=== PATIENT | female | born 1950 | race Caucasian/White ===

== ENCOUNTER 2019-06-15 21:26 | Emergency (ER) | payer OTHER ==
[~2019-06-15] VITALS: Ht 157.5 cm; Wt 98.4 kg
[2019-06-15 22:23] VITALS: Ht 157.5 cm; Wt 98.4 kg
[2019-06-15 23:28] LABS: BASOPHIL % 0.2 % (0-2); PLATELET COUNT 282 x10^3mcL (130-400); RED CELL DISTRIBUTION WIDTH 14.5 % (11.5-14.5)
[2019-06-15 23:39] LABS: CALCIUM 9.2 mg/dL (8.5-10.1); CHLORIDE SERUM 103 mmol/L (98-107); CREATININE SERUM 0.8 mg/dL (0.6-1.0); GFR1 > 60 mL/min; GLUCOSE SERUM 163 mg/dL (74-106); POTASSIUM SERUM 4.2 mmol/L (3.5-5.1); SODIUM SERUM 141 mmol/L (136-145)
[2019-06-15 23:44] LABS: ALBUMIN 3.9 g/dL (3.4-5.0); ALKALINE PHOSPHATASE 98 U/L (46-116); ALT/SGPT 19 U/L (14-59); AST/SGOT 16 U/L (15-37); BILIRUBIN TOTAL 0.6 mg/dL (0.20-1.00); LIPASE 37 IU/L (73-393); TOTAL PROTEIN, SERUM 7.7 g/dL (6.4-8.2)
[2019-06-16 01:55] VITALS: BP 159/78
== END 2019-06-16 01:56 | disposition home or self-care (01) ==
LOC: ED 21:26
DX: K21.9 Gastro-esophageal reflux disease without esophagitis (principal)
CPT/HCPCS: C9113; J1200; J2405; J3490; J7030

== ENCOUNTER 2019-08-04 16:15 | Emergency (ER) | payer OTHER ==
[~2019-08-04] VITALS: Ht 157.5 cm; Wt 94.8 kg
[2019-08-04 16:28] VITALS: Ht 157.5 cm; Wt 94.8 kg
[2019-08-04 17:59] LABS: BASOPHIL % 0.3 % (0-2); PLATELET COUNT 334 x10^3mcL (130-400); RED CELL DISTRIBUTION WIDTH 14.2 % (11.5-14.5)
[2019-08-04 18:10] LABS: CALCIUM 9.1 mg/dL (8.5-10.1); CARBON DIOXIDE 25.8 mmol/L (21-32); CHLORIDE SERUM 107 mmol/L (98-107); CREATININE SERUM 0.8 mg/dL (0.6-1.0); GFR1 > 60 mL/min; GLUCOSE SERUM 132 mg/dL (74-106); POTASSIUM SERUM 3.7 mmol/L (3.5-5.1); SODIUM SERUM 145 mmol/L (136-145)
[2019-08-04 20:12] VITALS: BP 170/51
== END 2019-08-04 20:12 | disposition home or self-care (01) ==
LOC: ED 16:15
PROVIDERS: Emergency Medicine
DX: S02.2XXA Fracture of nasal bones, initial encounter for closed fracture (principal); S09.8XXA Other specified injuries of head, initial encounter; J45.909 Unspecified asthma, uncomplicated; Z88.0 Allergy status to penicillin; Z88.6 Allergy status to analgesic agent; W01.0XXA Fall on same level from slipping, tripping and stumbling without subsequent striking against object, initial encounter; Y93.89 Activity, other specified; Y92.89 Other specified places as the place of occurrence of the external cause; Y99.8 Other external cause status
CPT/HCPCS: 36415; J1200; J1885; J2765; Q0169

== ENCOUNTER 2019-08-09 09:06 | Inpatient (IN) | payer OTHER ==
[~2019-08-09] VITALS: Ht 157.5 cm; Wt 94.8 kg
[2019-08-09 09:41] VITALS: BP 150/68
[2019-08-09 15:44] VITALS: BP 143/67
--- NOTE | 2019-08-09 17:13 | NUR ---
AT 1530 - RECEIVED APTIENT FROM DAY SURGERY NURSE. SETTLED IN ROOM, ORIENTED TO SURROUNDINGS. PATIENT IS POST LAP JOSUE TODAY UNDER GENERAL ANAESTHESIA. PATIENT IS AWAKE, ALERT AND ORIENTED X 4. VS WNL. ON O2 VIA NC AT 2L/MIN. O2 SAT 99%. DRESSINGS TO SURGICAL INCISIONS ON ABDOMEN ARE DRY AND INTACT. KAROLINA DRAIN PATENT WITH SMALL AMOUNT OF SEROSANGUINOUS FLUID IN BULB. SON AT BEDSIDE. AT 1545 - IV INFUSION OF NS COMMENCED AT 80 ML/HR. PT C/O NAUSEA AT 1555 - MEDICATED WITH REGLAN PER EMAR. CALL PALCED FOR DR LA TO OBTAIN DIET ORDER. AT 1640 - DR LA PER PHONE. HE WILL ENTER FULL LIQUID DIET. AT 1700 - COMMENCED ON FLAGYL. FIRST DOSE IN PROGRESS.
[2019-08-09 17:25] VITALS: BP 136/61
--- NOTE | 2019-08-09 17:59 | NUR ---
COMMENCED ON FULL LIQUID DIET BUT PATIENT ANGELES HAS SOME NAUSEA.
--- NOTE | 2019-08-09 18:54 | NUR ---
NO FURTHER VOMITING OR C/O NAUSEA. VSS. IV INFUSING VANCOMYCIN AT THIS TIME. ABDOMINAL INCISION DRESSINGS REMAINS INTACT. KAROLINA DRAIN PATENT; - TOTAL OF 50 ML SEROSANGUINOUS DRAINAGE SINCE SURGERY. WILL ENDORSE CARE TO NIGHT NURSE.
--- NOTE | 2019-08-09 19:10 | NUR ---
REPORT RECEIVED FROM DAY SHIFT RN. PATIENT WAS SEEN RESTING COMFORTABLY IN BED. NO DISTRESS NOTED. BREATHING EVEN AND UNLABORED ON 2L NC. NO SOB OR RESP DISTRESS NOTED. DENIES CHEST PAIN/PRESSURE. NO C/O PAIN. IV TO THE RIGHT HAND INFUSING WELL. PATENT AND INTACT. NO REDNESS OR SWELLING NOTED. ABD INCISION X3 W/ BANDAIDS COVERING EACH SITE AND RIGHT ABD DRESSING W/ KAROLINA DRAIN S/P LAP JOSUE. KAROLINA DRAIN WITH SCANT SEROSANGUINEOUS OUTPUT. KAROLINA DRAIN COMPRESSED. REPORTS N/V. 100ML OF BILIOUS EMESIS NOTED. REGLAN GIVEN BY DAY SHIFT RN AND NOT DUE AT THIS TIME. PATIENT IS AWARE. WILL MONITOR EMESIS. EDUCATED PATIENT ON THE IMPORTANCE OF EARLY AMBULATION S/P SURGERY. VERBAILZED UNDERSTANDING. NO GAS, BM, OR VOID YET. ECHYMOSIS NOTED TO RIGHT EYE. PATIENT REPORTS NOSE FRACTURE FROM GARDENING. COMFORT AND SAFETY MEASURES IN PLACE. BED IS LOCKED AND IN THE LOWEST POSITION. SIDE RAILS UP X2. CALL LIGHT IS WITHIN REACH. WILL CONTINUE TO MONITOR
--- NOTE | 2019-08-09 20:20 | NUR ---
RAY MONTEMAYOR ASSISTED PATIENT TO BATHROOM. PATIENT WAS ABLE TO VOIDS. REPORTED SLIGHT ABD DISCOMFORT WHEN AMBULATING TO BATHROOM. VOMITING IMPROVED. WILL CONTINUE TO MONITOR.
[2019-08-09 20:50] VITALS: BP 149/56
--- NOTE | 2019-08-09 21:19 | NUR ---
PATIENT REPORT EMESIS. 200 ML OF BILIOUS EMESIS WITH CHUNKS OF FOOD NOTED. PATEINT REPORTS VOMITING COMES AND GOES AND IS MILD. REPORTS EATING SOME SOUP FOR DINNER. WILL CONTINUE TO MONITOR.
--- NOTE | 2019-08-09 21:43 | NUR ---
ON ROOM AIR SATING 87%. PLACES O2 2L NC BACK ON . SATING 94%
--- NOTE | 2019-08-10 00:50 | NUR ---
RESTING IN BED. DENIES PAIN OR N/V. IVF INFUSING WELL. PATENT AND INTACT. BREATHING EVEN AND UNLABORED ON 2L NC. DENIES SOB. SAFETY MEASURES IN PLACE. CALL LIGHT IS WITHIN REACH. WILL CONTINUE TO MONITOR.
--- NOTE | 2019-08-10 03:28 | NUR ---
RESTING IN BED WITH EYES CLOSED. NO SIGNS OF DISTRESS NOTED. BREATHING EVEN AND UNLABORED ON 2L NC. NO SOB NOTED. IVF INFUSING WELL. PATENT AND INTACT. NO REDNESS OR SWELLING NOTED. SAFETY MEASURES IN PLACE. CALL LIGHT IS WITHIN REACH. WILL CONTINUE TO MONITOR.
[2019-08-10 05:40] VITALS: BP 142/54
[2019-08-10 06:29] LABS: BASOPHIL % 0.2 % (0-2); PLATELET COUNT 284 x10^3mcL (130-400)
--- NOTE | 2019-08-10 06:30 | NUR ---
RESTED IN INTERVALS THROUGHOUT THE NIGTH. NO ACUTE CHANGES NOTED. BREATHING EVEN AND UNLABORED 2L NC. NO SOB OR RESP DISTRESS NOTED. IS AT BEDSIDE. EDUCATED PATIENT ON OW TO USE IT. IVF INFUSING WELL. NO DISTRESS NOTED. NO C/O PAIN THROUGHOUT THE NIGHT. 300ML OF EMESIS DURING THE NIGHT. DENIES N/V AT THIS TIME. KAROLINA EMPTIED WITH 20ML OF SANGUNIEOUS OUTPUT. EDUCATED PATIENT ON HOW TO EMPTY KAROLINA DRAIN AND TO KEEP IT COMPRESSED. REPORTS PASSING GAS WHEN AMBULATING TO BATHROOM. NO BM. ENCOURAGED PATIENT TO AMBULATE THIS MORNING. ALL NEEDS AND CONCERNS ADDRESSED. SAFETY MEASURES IN PLACE. CALL LIGHT IS WITHIN REACH. WILL ENDORSE CARE TO DAY SHIFT RN.
[2019-08-10 06:50] LABS: ALKALINE PHOSPHATASE 83 U/L (46-116); ALT/SGPT 44 U/L (14-59); AST/SGOT 35 U/L (15-37); BILIRUBIN TOTAL 0.6 mg/dL (0.20-1.00); CALCIUM 8.4 mg/dL (8.5-10.1); CHLORIDE SERUM 106 mmol/L (98-107); CREATININE SERUM 0.7 mg/dL (0.6-1.0); GFR1 > 60 mL/min; GLUCOSE SERUM 105 mg/dL (74-106); MAGNESIUM 1.8 mg/dL (1.8-2.4); POTASSIUM SERUM 3.9 mmol/L (3.5-5.1); SODIUM SERUM 141 mmol/L (136-145); TOTAL PROTEIN, SERUM 6.2 g/dL (6.4-8.2)
[2019-08-10 06:57] LABS: ALBUMIN 2.8 g/dL (3.4-5.0)
--- NOTE | 2019-08-10 07:30 | NUR ---
RECEIVED PT IN NO ACUTE DISTRESS. AAOX4. RESP EVEN AND UNLABORED ON 2L O2 VIA NC. PURPLE AND BLACK DISCOLORATION TO R PERIORBITAL AREA AND SLIGHT SWELLING, PETE. 4X BAND AIDS TO ABD, C/D/I. KAROLINA DRAIN TO R ABDOMEN WITH SEROSANGUINEOUS DRAINAGE. PT C/O PAIN TO R HAND IV, IVF STOPPED AT THIS TIME. WILL REMOVE IV AND INSERT NEW IV ACCESS. PT REPORTS FEELING SORE AROUND ABD AREA WHEN MOVING. BED IN LOW POSITION, CALL LIGHT WITHIN REACH. WILL ENDORSE TO ONCOMING SHIFT.
[2019-08-10 07:41] VITALS: BP 108/67
[2019-08-10 07:42] VITALS: BP 129/91
[2019-08-10] MEDS ORDERED: CIPRO500 MG PO (09:25)
[2019-08-10] MEDS ORDERED: FLA500 PO (09:25)
[2019-08-10 11:48] VITALS: BP 129/91
[2019-08-10 11:57] VITALS: BP 137/53
--- NOTE | 2019-08-10 12:36 | NUR ---
PT RESTING IN BED. NO ACUTE DISTRESS. GIVEN PAIN MEDICATION PRIOR TO DC OF KAROLINA DRAIN. IVF INFUSING, NO REDNESS OR SWELLING TO IV SITE. HOB SLIGHTLY ELEVATED. AMBULATES TO BATHROOM AND BACK TO BED WITHOUT ASSIST, GAIT STEADY. CALL LIGHT WITHIN REACH. WILL CONTINUE TO MONITOR.
--- NOTE | 2019-08-10 13:58 | NUR ---
PT DISCHARGED TO HOME IN NO ACUTE DISTRESS. AWAKE, ALERT, AND ORIENTED. VSS. TRANSPORTED VIA WHEELCHAIR. KAROLINA DRAIN DC'D ORDERED, PT TOLERATED WELL. 20 ML SEROSANGUINEOUS OUTPUT. DISCHARGE EDUCATION PROVIDED, PT VERBALIZED UNDERSTANDING. INSTRUCTED PT TO FOLLOW UP WITH PCP AND DR. TOTH. ABD SURGICAL INCISION SITES CLEANED WITH NS AND DRIED WITH 4X4 GAUZE. NEW BAND AIDS APPLIED X4, C/D/I. PT GIVEN BAND AID SUPPLIES. BELONGINGS WITH PT. MT. FUNK STUDENT ACCOMPANIED PT TO LOBBY.
[2019-08-15 10:37] VITALS: Ht 157.5 cm; Wt 94.8 kg
== END 2019-08-10 14:00 | disposition home or self-care (01) | DRG 417 ==
LOC: DS 09:06 → OR 11:00 → DS 12:00 → MU 14:55
PROVIDERS: Surgery; ADMIT Internal Medicine Pulmonary Disease
PROC: 0FT44ZZ Resection of Gallbladder, Percutaneous Endoscopic Approach (ICD-10-PCS; principal; 2019-08-09 11:00)
DX: K80.12 Calculus of gallbladder with acute and chronic cholecystitis without obstruction (principal); K65.8 Other peritonitis; E66.9 Obesity, unspecified; Z68.38 Body mass index [BMI] 38.0-38.9, adult
CPT/HCPCS: G0378; J0330; J1170; J1644; J2704; J2710; J2765; J3010; J3370; J3490; J7030; J7120